=== PATIENT | male | born 1980 | race Caucasian/White ===

== ENCOUNTER 2017-10-05 05:08 | Emergency (ER) | payer OTHER, SELFPAY ==
[2017-10-05 05:08] VITALS: BP 142/96; PULSE 79; RESP 22; TEMP 36.6; O2SAT 97; BMI 37.5
--- NOTE | 2017-10-05 05:20 | ED.VISSUMM ---
- ER Visit Summary Date of Service: 10/05/17 Chief Complaint: Left middle finger injury History of Present Illness: The patient is a 36 M who presents for a left middle finger injury that occurred at work tonight. Patient got his finger crushed between a piece of metal and a shear at work. It resulted in a cut to the finger. Patient is right-handed. Tetanus is up-to-date in the last 5 years. Patient denies any other injuries. He is not on any blood thinners and has no history of bleeding disorders. Physical Examination: Patient is awake and alert, well-nourished well-developed sitting in bed in no distress. Afebrile and hemodynamically stable. Examination of the left hand shows a laceration to the dorsum of the left middle finger traversing the PIP joint. No obvious laceration to the nail. Ecchymosis noted to 20% of the nail bed. Brisk cap refill in the distal finger. Patient able to flex and extend at the PIP and DIP joints. Sensation is intact on the ulnar and radial surfaces of the finger. Remainder of exam unremarkable. Test Results: Clinical Impression(s) from Imaging Studies Finger X-Ray 10/05/17 05:19 IMPRESSION: Mildly comminuted fracture of the tuft of the distal phalanx. No demonstrated radiodense foreign body. Electronically Signed: Ata Rodas MD at 5:40 EDT , Service support , Emergency Department Course and Treatment: X-ray was performed of the finger, showing a comminuted nondisplaced tuft fracture. A digital block was performed using 8cc of 1% lidocaine with good anesthesia achieved. The laceration was copiously irrigated and blood clot was removed, revealing that the nailbed was exposed and there was not sufficient soft tissue for reapproximation over the nailbed. Because of the inability to repair this defect, patient was discussed with Dr. Law, who recommended urgent evaluation by Dr. Wesley or a hand surgeon. Dr. Wesley is out of town, and thus patient was discussed with Dr. Donato Garcia of [facility], who stated the patient could be seen at the [facility] office today. A nonadherent dressing was placed over the laceration/avulsion and exposed nailbed after copious irrigation with sterile saline. No foreign bodies noted, and no obvious bone visualized. A bulky dressing was applied and an AlumiFoam splint was used to immobilize/protect the finger. Patient was given follow-up information for [facility], and he stated he would be able to go follow-up at the [place] office today. Worker's Comp. paperwork was filled out. We attempted to contact the appointment line to arrange an appointment prior to discharge, but the line was not open yet. Patient discharged home with prescription for clindamycin, with first dose given in the ED, for infection prophylaxis (allergic to PCN). Treatment Plan: [] Disposition: [] Impression: Left long finger tuft fracture, 3 cm complex laceration with avulsed tissue and nailbed exposure This note was generated with myinfo[employer] dictation software. It may contain incorrect words, spelling, and punctuation that were not noted in review of the chart prior to signing ED Disposition - Plan for ED Patient: Disposition: Home or Assisted Living Chief Complaint: Laceration Instructions: ED Fx Finger Open, ED Laceration Hand Prescriptions: Clindamycin [Cleocin] 300 mg PO 4X/DAY 5 Days #40 cap Referrals: Raúl Gutiérrez MD [Primary Care Provider] - Additional Instructions: Please follow up with the [facility], Hand Surgeon, in [place] today. Call for an appointment as soon as possible today. We spoke with Dr. Donato Garcia, who said you could be seen by one of their providers in the [facility] office today. The address is: [address] [place], [place] [id number] CALL to arrange an appointment. You were given a dose of clindamycin to help prevent infection. You have been given a prescription for this antibiotic, but do not fill it until you follow up with the hand surgeon in case they want to change your prescription.
--- NOTE | 2017-10-05 06:56 | ED.DEP ---
ED Disposition - Plan for ED Patient: Disposition: Home or Assisted Living Chief Complaint: Laceration Instructions: ED Laceration Hand, ED Fx Finger Open Prescriptions: Clindamycin [Cleocin] 300 mg PO 4X/DAY 5 Days #40 cap Referrals: Raúl Gutiérrez MD [Primary Care Provider] - Additional Instructions: Please follow up with the [facility], [facility] Sur[facility] today. Call for an appointment as soon as possible today. We spoke with Dr. Donato Garcia, who said you could be seen by one of their providers in the [facility] office today. The address is: [address] [place] [address] CALL to arrange an appointment. You were given a dose of clindamycin to help prevent infection. You have been given a prescription for this antibiotic, but do not fill it until you follow up with the hand surgeon in case they want to change your prescription.
--- NOTE | 2017-10-05 07:01 | DCINST.ED_ITS ---
ED Disposition - Plan for ED Patient: Disposition: Home or Assisted Living Chief Complaint: Laceration Instructions: ED Laceration Hand, ED Fx Finger Open Prescriptions: Clindamycin [Cleocin] 300 mg PO 4X/DAY 5 Days #40 cap Referrals: Raúl Gutiérrez MD [Primary Care Provider] - Additional Instructions: Please follow up with the [facility], Hand Surgeon, in [facility] today. Call for an appointment as soon as possible today. We spoke with Dr. Donato Garcia, who said you could be seen by one of their providers in the [facility] office today. The address is: [address] [place] [address] CALL to arrange an appointment. You were given a dose of clindamycin to help prevent infection. You have been given a prescription for this antibiotic, but do not fill it until you follow up with the hand surgeon in case they want to change your prescription.
[2017-10-05] MEDS: Clindamycin HCl 150 MG Capsule 300 MG PO (07:20)
== END 2017-10-05 07:31 | disposition home or self-care (01) ==
PROVIDERS: Emergency Provider Emergency Medicine; PCP Internal Medicine
DX: S62.663B Nondisplaced fracture of distal phalanx of left middle finger, initial encounter for open fracture (principal); W23.0XXA Caught, crushed, jammed, or pinched between moving objects, initial encounter; Y93.89 Activity, other specified; Y92.89 Other specified places as the place of occurrence of the external cause; Y99.0 Civilian activity done for income or pay
CPT/HCPCS: 73140; 99283

== ENCOUNTER 2017-10-07 11:15 | Day surgery (SDC) | payer OTHER, SELFPAY ==
[2017-10-07] VITALS (7 sets, daily range): BP systolic 116–126; BP diastolic 84–96; PULSE 65–77; RESP 16; TEMP 36.2–37.1; O2SAT 94–97; BMI 36.8
[2017-10-07] MEDS: Bupivacaine Mpf 0.5% 30 ML VIAL (15:00)
[2017-10-07] MEDS: Bacitracin 500 UNITS/GM PACKET (15:01)
--- NOTE | 2017-10-07 15:14 | PCM.OPRPT ---
Report of Operation Date of Procedure: 10/07/17 Pre-Operative Diagnosis: Dorsal finger laceration with open tuft fracture and nailbed laceration left long finger Post-Operative Diagnosis: Dorsal finger laceration with open tuft fracture and nailbed laceration left long finger Surgery/Procedure Performed:: Irrigation debridement left long finger open tuft fracture. Nail bed removal and repair of nailbed. Description of Surgical Findings:: Wound was cleaned well with nail bed laceration repair. restaurant hourly manager: Gabe Mcgee Type of Anesthesia:: Local MAC Anesthesiologist: Cristian Thacker Special Medications: 600 mg clindamycin Estimated Blood Loss (mL): 5 Fluids Replaced: 300 ml crystalloid Description of Procedure: On the date of the procedure in the preoperative area patient's left long finger was marked. Patient was brought back to the operating room where he was left on the gurney. Anesthesia assumed control the C-spine airway and remained controlled throughout the remainder of the procedure. All bony prominences were identified well-padded skin was prepped with alcohol and a local digital block was given using 1% lidocaine 0.5% Marcaine. While the block was allowed to set up wound is scrubbed vigorously with Betadine solution and prepped for surgery. Surgeons and scrub. Upon reentering the room left upper extremity was draped in a standard orthopedic fashion. Timeout was called. When agreed upon the side, site, procedure to be performed, patient identity and by skin. Tourniquet was placed in the wound was explored. No gross debris was noted. Wound appeared clean from the bigger scrub. Tendon was intact on the dorsum of the hand. At this time the nail was removed and the nailbed laceration was identified. 5-0 chromic catgut was used to repair the nailbed laceration. We then directed our attention to the laceration on the dorsum of the digit. This was closely approximated using 5-0 chromic catgut. The previously removed nail was vigorously debrided of gross tissue and placed back to leave the eponychial fold open. Bacitracin was then placed in the dorsum of the nail bed and laceration and a sterile dressing was placed on the wound. Splint was placed to protect the distal figure and turnicot was removed. Patient was awakened by anesthesia transferred to PACU for recovery. My physician physicians assistant was vital throughout this procedure assisting in the nail bed laceration repair of traction of soft tissues. Also vital in positioning the patient in holding extremity during the procedure. - Complications none - Admit VTE Documentation VTE Present on Admission: No VTE Mechan Device Prophylaxis: SCD's VTE Pharm Prophylaxis ordered?: No Reason prophylaxis not ordered:: Treatment Not Indicated
== END 2017-10-07 16:26 | disposition home or self-care (01) ==
LOC: SDC 11:15 → AC 11:17
PROVIDERS: Family Provider Internal Medicine; PCP Internal Medicine; Visit Provider Specialist
PROC: (CPT 26055; principal; 2017-10-07 13:05)
DX: S62.633B Displaced fracture of distal phalanx of left middle finger, initial encounter for open fracture (principal); S67.193A Crushing injury of left middle finger, initial encounter; Z79.2 Long term (current) use of antibiotics; W23.0XXA Caught, crushed, jammed, or pinched between moving objects, initial encounter; Y93.89 Activity, other specified; Y92.89 Other specified places as the place of occurrence of the external cause; Y99.0 Civilian activity done for income or pay
CPT/HCPCS: 12001; J7120